=== PATIENT | male | born 1985 | race African-American/Black ===

== ENCOUNTER 2020-08-13 08:08 | Emergency (ER) | payer OTHER ==
[~2020-08-13] VITALS: Ht 177.8 cm; Wt 68.0 kg
[2020-08-13] MEDS ORDERED: REXULTI0.25 MG (09:54)
[2020-08-13] MEDS ORDERED: BRINTELLIX5 MG (09:55)
[2020-08-13 10:07] LABS: AMP/METHAMP Negative (Negative); BARBITURATES Negative (Negative); BENZODIAZEPINES Negative (Negative); COCAINE Negative (Negative); METHADONE Negative (Negative); OPIATES Negative (Negative); PCP POSITIVE (Negative)
[2020-08-13 10:10] VITALS: BP 133/94
== END 2020-08-13 10:10 | disposition home or self-care (01) ==
LOC: ER 08:08
PROVIDERS: Emergency Medicine
DX: F16.10 Hallucinogen abuse, uncomplicated (principal); R41.82 Altered mental status, unspecified; Z79.899 Other long term (current) drug therapy